=== PATIENT | female | born 1980 | race African-American/Black ===

== ENCOUNTER 2025-02-13 14:33 | Outpatient (AMB) | payer OTHER, SELFPAY ==
--- OUTSIDE RECORDS SUMMARY | 2025-02-10 13:30 | XMS_ITS | Encounter Summary ---
Author Organization [facility] Address [address] [place] [address] Care Team Providers Care Quality Rep Name Role Phone Trevin Quiñonez MD Primary Care Provider [phone] Reason for Visit * Reason Comments Results K f/u Encounter Details Date Type Department Care Team (Late st Contact Info) Description 02/10/2025 1:30 PM EDT [facility] [address] [place] [phone] Trevin Quiñonez MD [address] [place] [id number] Controlled type 2 diabetes mellitus with microalbuminuria, without long-term current use of insulin (CMS/HCC V24, CMS/HCC V28) (Primary Dx); Chronic nausea; Primary hypertension Social History Tobacco Use Types Packs/Day Years Used Date Smoking Tobacco: Former Cigarettes Q uit: 03/15/2017 Smokeless Tobacco: Former Tobacco Cessation:Counseling Given: Not Answered Alcohol Use Standard Drinks/Week Comments Yes 0 (1 standard drink = 0.6 oz pur e alcohol) Housing Instability Answer Date Recorde d Are you worried that in the next 2 months you may not have stable housing? No 01/04/2025 Food Access & Nutrition Answer Date Rec orded Do you have access to a vari ety of food including fruits and vegetables? Yes 01/04/2025 Access to Healthcare Answer Date Record ed Within the last 3 months, ho w many times did you visit the emergency department for your medical care? 0 01/04/2025 Health Literacy Answer Date Recorded How often do you need to hav e someone help you when you read instructions, pamphlets, or other written material from your doctor or pharmacy? Never 01/04/2025 Caregiver: How often do you need to have someone help you when you read instructions, pamphlets, or other written material from your doctor or pharmacy? Not on file 01/04/2025 Financial Risk Answer Date Recorded How hard is it for you to pa y for the very basics like food, housing, medical care, and air conditioning / heating? Patient declined 01/04/2025 Transportation Answer Date Recorded Has the lack of transportati on kept you from meetings, work, or from getting things needed for daily living? No Has the lack of transportati on kept you from medical appointments or from getting medications? No 01/04/2025 Social Isolation Answer Date Recorded How often do you feel lonely or isolated from those around you? Sometimes 01/04/2025 Food Risk Answer Date Recorded Within the past 12 months we worried whether our food would run out before we got money to buy more. Sometimes true 025 Within the past 12 months th e food we bought just didn't last and we didn't have money to get more. Sometimes true 01/04/2025 Dependent Care Answer Date Recorded Do you need help finding or paying for care for your loved ones. For example, child welfare caseworker or elderly care for an older adult? No 01/04/2025 Education Answer Date Recorded Do you think completing more education or training, like finishing a GED, going to college, or learning a trade, would be helpful for you? N/A 01/04/2025 Employment and Income Answer Date Recor ded During the last four weeks, have you been actively looking for work? No 01/04/2025 Living Situation Answer Date Recorded What is your living situation? Unrecognized valu e 01/04/2025 Comments No Sex and Gender Information Value Date Recorded Sex Assigned at Female 02/19/2024 1:26 AM EDT Legal Sex Female 6:07 AM EST Gender Identity Female 02/19/2024 1:26 AM EDT Sexual Orientation Straight 02/19/2024 1: 26 AM EDT documented as of this encounter Last Filed Vital Signs Vital Sign Reading Time Taken Comments Blood Pressure 126/95 02/10/2025 1:38 PM EDT Pulse 91 02/10/2025 1:38 PM EDT Temperature - - Respiratory Rate - - Oxygen Saturation - - Inhaled Oxygen Concentration - - Weight 152 kg (335 lb) 02/10/2025 1:38 PM EDT Height 188 cm (6' 2 ) 02/10/2025 1:38 PM EDT Body Mass Index 43.01 02/10/2025 1:38 PM EDT documented in this encounter Progress Notes * Trevin Quiñonez MD - 02/10/2025 1:30 PM EDT CHIEF COMPLAINT: Chief Complaint Patient presents with Results K f/u IDENTIFIER: Alvina Carl. 45 y.o.. HPI: History of Present Illness The patient presents for evaluation of vomiting. Patient has a longstanding history for diabetes hypertension. She reports experiencing frequent episodes of vomiting, the cause of which remains uncertain to her. She is currently on Ozempic injections and has experienced up to 3 episodes of vomiting in a single day. He usually follows day to 3 after the injection I did explain to her that this could be very well a side effect of the medication. She has been prescribed Zofran 10 mg, but notes that it occasionally induces further vomiting. She does have a longstanding history for hypertension which has been stable and controlled She has not had a mammogram this year or within the last year, but she has scheduled it. She has also scheduled a colonoscopy. PAST MEDICAL HISTORY: Medical History[1] PAST SURGICAL HX: Surgical History[2] SOCIAL HISTORY: FAMILY HISTORY: Family History[3] MEDICATIONS DISCONTINUED/REORDERED: There are no discontinued medications. ACTIVE MEDICATIONS: Medications Ordered Prior to Encounter[4] ALLERGIES: Current Allergies[5] ROS: Constitutional: no weakness fever/ sweats, or weight change Eyes: no blurred vision,pain or discharge ENT: no mouth pain,oral bleeding, congestion or discharge Respiratory: no shortness of breath, cough or wheezing Cardiovascular:no chest pain or palpitations, no orthopnea or PND GI: no nausea, vomiting or diarrhea; no rectal bleeding or dark stools : no dysuria or frequency; no nocturia or hesitancy PHYSICAL EXAM: Vitals: 02/10/25 1338 BP: (!) 126/95 Pulse: 91 BMI PLAN BMI Body mass index is 43.01 kg/m??. General: the patient is in no acute distress.A & Ox 3 Head/Neck: neck supple Lungs: clear to percussion and auscultation. Heart: regular rhythm Abdominal exam; positive bowel sounds; soft, Extremities: no cyanosis, clubbing or edema. LABS: Recent A1c 5.2% IMPRESSION: Encounter Diagnoses Name Primary? Controlled type 2 diabetes mellitus with microalbuminuria, without long-term current use of insulin([facility] V24, [facility] V28) Yes Chronic nausea Primary hypertension PLAN: Assessment & Plan 1. Vomiting: Likely a side effect of Ozempic. Take Zofran as needed for onset of nausea 2 hypertension stable on losartan - Blood pressure readings are within the normal range today. - Achieved weight loss. 3.) diabetes - A1c level is commendable at 5.2%. - Recent cholesterol levels are excellent. - Liver enzymes are within normal limits. - Scheduled mammogram and colonoscopy. - Encouraged to continue current regimen and maintain weight loss efforts. Follow-up - Scheduled mammogram. - Scheduled colonoscopy. No orders of the defined types were placed in this encounter. Additional Orders: None I have obtained verbal consent from Alvina Carl prior to the recording. I have advised Alvina Carl that she may refuse the recording and require the recording to be turned off at any time during this encounter. Trevin Quiñonez MD [1] Past Medical History: Diagnosis Date Alpha thalassemia trait DX:Alpha thalassemia trait COVID-19 06/13/2020 DX:COVID-19; COMMENT: Patient tested positive to Covid 06/11/20 Diabetes ([facility] V24, [facility] V28) DX:Diabetes ([facility]) Diarrhea DX:Diarrhea Ear infection DX:Ear infection; COMMENT: 2-3 X yr Epigastric discomfort DX:Epigastric discomfort Hypertension DX:Hypertension Iron deficiency anemia, unspecified 12/29/2006 DX:Iron deficiency anemia, unspecified Microalbuminuria 01/25/2015 DX:Microalbuminuria Nausea DX:Nausea [2] Past Surgical History: Procedure Laterality Date ADENOIDECTOMY age 6 PROCEDURE: HISTORICAL ADENOIDECTOMY CHOLECYSTECTOMY 2016 PROCEDURE: HISTORICAL CHOLECYSTECTOMY HYSTERECTOMY 2013 PROCEDURE: HISTORICAL HYSTERECTOMY; COMMENT: menorrhagia OTHER SURGICAL HISTORY Left 06/17/2020 PROCEDURE: ---- OTHER ----; COMMENT: Sharp excisional debridement of skin, subcutaneous tissue, andfascia from a left thigh necrotizing soft tissue infection - by Dr. Binh Preciado OTHER SURGICAL HISTORY Left 06/18/2020 PROCEDURE: ---- OTHER ----; COMMENT: Intermediate closure of a left thigh wound status post excisional debridement of a necrotizing soft tissue infection - by Dr. Mary Zelaya WISDOM TOOTH EXTRACTION 02/2012 PROCEDURE: HISTORICAL WISDOM TEETH EXTRACTION [3] Family History Problem Relation Name Age of Onset Stroke Mother 50.00 Diabetes Mother Hypertension Mother Prostate cancer Father 55.00 Hypertension Father ADD / ADHD Son Depression Son [4] Current Outpatient Medications on File Prior to Visit Medication Sig Dispense Refill albuterol HFA (PROAIR HFA ; PROVENTIL HFA ; VENTOLIN HFA) 90 mcg/actuation inhaler Inhale 2 puffs by mouth every 6 (six) hours if needed for wheezing. amLODIPine (NORVASC) 10 mg tablet TAKE 1 TABLET BY MOUTH EVERY DAY 90 tablet 0 atorvastatin (LIPITOR) 20 mg tablet TAKE 1 TABLET BY MOUTH EVERY DAY 90 tablet 0 bisacodyL (DULCOLAX) 5 mg EC tablet Take 2 tablets by mouth right before beginning bowel prep. See instructions provided by the office 2 tablet 0 blood sugar diagnostic (FreeStyle Lite Strips) test strip USE TO CHECK BLOOD SUGAR TWICE A DAY 200 strip 1 buPROPion XL (WELLBUTRIN XL) 300 mg 24 hr tablet Take 450 mg by mouth 1 (one) time each day. Do notcrush, chew, or split. carvediloL (COREG) 6.25 mg tablet TAKE 1 TABLET BY MOUTH TWICE A DAY WITH MEALS 180 tablet 2 cloNIDine (DLNUVQUP-DHA-3) 0.2 mg/[address] 1 Patch onto the skin once a week. divalproex (DEPAKOTE ER) 250 mg 24 hr tablet TAKE 1 TABLET BY MOUTH EVERY DAY FOR 90 DAYS doxepin (SINEquan) 10 mg capsule TAKE 1 CAPSULE BY MOUTH EVERY NIGHT AT BEDTIME FOR INSOMNIA inhalat.spacing dev,large mask spacer Use with inhaler lidocaine (LIDODERM) 5 % patch Place 1 Patch onto the skin every 24 hours. Apply for no more than 12 hours in any 24 hour period. losartan (COZAAR) 50 mg tablet Take 1 Tablet by mouth daily. meclizine (ANTIVERT) 25 mg tablet Take 1 Tablet by mouth 3 times daily as needed (dizziness). metFORMIN (GLUCOPHAGE) 500 mg tablet Take 1 tablet (500 mg total) by mouth 2 (two) times a day withmeals. 180 tablet 1 ondansetron (ZOFRAN) 4 mg tablet Take 1-2 Tablets by mouth every 8 hours as needed for Nausea. polyethylene glycol (Golytely) 236-22.74-6.74 -5.86 gram solution Take 4L by mouth once for one dose. May substitue any PEG. Starting at 2PM the day before your procedure drink 1 8oz glasses at your own pace until you complete half of the gallon. Finish 2nd half of the gallon at 8PM. 4000 mL 0 pregabalin (LYRICA) 100 mg capsule TAKE 1 CAPSULE TWICE A DAY BY ORAL ROUTE DIRECTED FOR 30 DAYS, FOR PAIN. semaglutide (OZEMPIC) 1 mg/dose (4 mg/3 mL) injection pen Inject 1 mg under the skin every 7 (seven) days. 3 mL 5 sertraline (ZOLOFT) 100 mg tablet Take 1 Tablet by mouth daily. (Patient taking differently: Take 0.5 tablets (50 mg total) by mouth 1 (one) time each day.) spironolactone (ALDACTONE) 25 mg tablet TAKE 1 TABLET BY MOUTH EVERY DAY 90 tablet 0 SUMAtriptan (IMITREX) 50 mg tablet traMADoL (ULTRAM) 50 mg tablet TAKE 1 TABLET TWICE A DAY BY ORAL ROUTE NEEDED FOR 7 DAYS, FOR PAIN. traZODone (DESYREL) 100 mg tablet Take 2.5 Tablets by mouth at bedtime as needed. valACYclovir (VALTREX) 1 gram tablet TAKE 1 TABLET (1,000 MG TOTAL) BY MOUTH DAILY 90 tablet 1 No current facility-administered medications on file prior to visit. [5] Allergies Allergen Reactions Fruit Extracts Nausea And Vomiting and Swelling Fruit and Fruit Extracts Other Reaction(s): Numbness, tingling or swelling of the lips, tongue or mouth All fresh fruit All fresh fruit causes mouth tingling, tongue swelling Fruit Flavor Swelling All fresh fruit causes mouth tingling, tongue swelling Other Seasonal Allergies Runny nose , watery eye's , sneezing documented in this encounter Plan of Treatment Upcoming Encounters Date Type Department Care Team (Late st Contact Info) Description 02/15/2025 1:30 PM EDT [facility]ointment [facility] [address] [place] [address] 03/02/2025 4:20 PM EST Office Visit Endocrinology - [place] [address] [place] [address] Elvi Willett PA [address] [place] [address] documented as of this encounter Visit Diagnoses Diagnosis Controlled type 2 diabetes mellitus with microalbuminuria, without long-term current use of insulin ([facility] V24, [facility] V28)- Primary Chronic nausea Nausea alone Primary hypertension Unspecified essential hypertension Encounter for screening mammogram for breast cancer documented in this encounter Additional Health Concerns Assessment Noted Time PHQ-9 Depression Total Score: 8 01/10/20 25 1:35 PM EDT documented as of this encounter Care Teams Quality Rep Relationship Specialty Start Date End Date Trevin Quiñonez MD [address] [place] [id number] PCP - General Internal Medicine 02/25/24 documented as of this encounter
--- NOTE | 2025-02-13 14:58 | A.OFFVIS_ITS ---
Intake Visit Reasons: Last visit 07/13/24 per [facility]CW Allergies No Known Allergies Allergy (Verified 02/08/25 11:06) HPI Comments Details: 43 y/o woman with obesity, HTN, DM, depression, anxiety, s/p spinal cord stimulator placement for leg pain in 2022, and headaches. She has run out of depakote and she was having headaches again. Sumatriptan was helping too. [facility] Medical History (Updated 02/13/25 @ 15:01 by Wayne Titus MD) Migraine Agoraphobia Anxiety Depression Obesity Diabetes mellitus HTN (hypertension) Review of Systems Narrative Constitutional:?No fever, chills, fatigue, weight loss, or night sweats. HEENT:?c/o headaches but not as bad as before Neurological:?No dizziness, syncope, seizures, numbness, tingling, weakness, tremors, memory loss. Psychiatric:?Lately mood is not great Endocrine:?No heat/cold intolerance, polydipsia, polyuria, or hair/skin changes. Hematologic/Lymphatic:?No easy bruising, bleeding, or lymphadenopathy. Integumentary (Skin):?No rash, lesions, itching, or color changes. ? Physical Exam Neuro Other: Mental Status: Alert and oriented to person, place, and time. Normal attention. Normal spontaneous speech, fluency, and comprehension. No obvious issues with mood and memory. Affect is appropriate. Cranial Nerves: CN II: Visual garcia full to confrontation, visual acuity intact. CN III, IV, : Pupils equal, round, reactive to light and accommodation. Extraocular movements are normal. CN V: Facial sensation is normal. CN VII: Facial movements symmetrical. CN VIII: Hearing intact to bedside conversation is normal. CN IX, X: Palate elevates symmetrically. CN XI: Shoulder shrug and head turn symmetrical. CN XII: Tongue midline without atrophy or fasciculations. Extrapyramidal: Full facial expressions and blinking. No rigidity. Movements are appropriate with no tremor or abnormality. Speech: Normal; no dysarthria or tremor. Assessment & Plan Assessment & Plan (1) Migraine: Comment: Meds tried: Topiramate, propranolol, Depakote. Code(s): G43.909 - Migraine, unspecified, not intractable, without status migrainosus Category: Medical Qualifiers: Migraine type: without aura Status migrainosus presence: without status migrainosus Intractability: not intractable Qualified Code(s): G43.009 - Migraine without aura, not intractable, without status migrainosus Plan Impression: Migraine without aura Recommendations: 1. D valproic acid extended release 250 mg 1 at bedtime 2. Sumatriptan 50 mg 1 a day as needed Medications: New sumatriptan succinate 50 mg orally qd prn for headache PRN; do not exceed 4 d oses per 24 hrs 10 tabs 5RF migraine headache Refilled divalproex 250 mg PO DAILY 90 tabs 1RF Coding Level of Care Code Est Pt Level 4 (27463) Diagnoses Migraine without aura and without status migrainosus, not intractable G43.009 Migraine type: without aura Status migrainosus presence: without status migrainosus Intractability: not intractable
--- OUTSIDE RECORDS SUMMARY | 2025-02-13 18:07 | XMS_ITS | Encounter Summary ---
Author Organization [facility] Address [address] [place] [address] Care Team Providers Care Health Aid Name Role Phone Trevin Quiñonez MD Primary Care Provider Encounter Details Date Type Department Care Team (Late st Contact Info) Description 01/25/2025 Results Follow-Up Endocrinology - [place] [address] [place] [address] Elvi Willett PA [address] [place] [address] Social History Tobacco Use Types Packs/Day Years Used Date Smoking Tobacco: Former Cigarettes Q uit: 03/15/2017 Smokeless Tobacco: Former Alcohol Use Standard Drinks/Week Comments Yes 0 [...] AM EDT documented as of this encounter Plan of Treatment Upcoming Encounters Date Type Department Care Team (Late st Contact Info) Description 02/15/2025 1:30 PM EDT Appointment [facility] at [address] [phone] 03/02/2025 4:20 PM EST Office Visit Endocrinology [address] [phone] Elvi Willett PA [address] [place] [address] documented as of this encounter Visit Diagnoses Not on filedocumented in this encounter Additional Health Concerns Assessment Noted Time PHQ-9 Depression Total Score: 8 01/10/20 25 1:35 PM EDT documented as of this encounter Care Teams Health Aid Relationship Specialty Start Date End Date Trevin Quiñonez MD [address] [place] [id number] PCP - General Internal Medicine 02/25/24 documented as of this encounter
--- OUTSIDE RECORDS SUMMARY | 2025-02-13 18:07 | XMS_ITS | Clinical Summary ---
Author Organization [facility] Address [address] [place] [address] Care Team Providers Care Sales Broker Name Role Phone Gali Canales MD Primary Care Provider [phone] Allergies Active Allergy Reactions Criticality Noted Date Comments Fruit Swelling 03/14/2014 All fresh fruit causes mouth tingling, tongue swelling Medications Medication Sig Dispensed Refills Start Date End Date Status adalimumab (Humira Pen) 40 MG/0.8ML injection Inject 40 mg under the skin once a week. 0 06/09/2019 Active albuterol (ProAir HFA) 108 (90 Base) MCG/ACT inhaler Inhale 2 puffs into the lungs 4 (four) times a day as needed. 0 08/05/2018 Active amLODIPine (NORVASC) tablet 10 mg Take 1 tablet by mouth daily. 0 05/11/2019 Active cloNIDine (CATAPRES) 0.2 MG tablet Take 1 tablet by mouth every night at bedtime. 0 09/16/2019 Active colestipol (COLESTID) 1 g tablet Take 2 tablets by mouth daily. 0 01/24/2019 Active indapamide (LOZOL) 2.5 MG tablet Take 2.5 mg by mouth daily. 0 04/01/2019 Active liraglutide (Victoza) 18 MG/3ML injection Inject 1.8 mg under the skin daily. 0 03/08/2019 Active loratadine (Claritin) 10 MG tablet Take 10 mg by mouth daily. 0 12/11/2016 Active losartan (COZAAR) tablet 50 mg Take 50 mg by mouth daily. 0 04/01/2019 Active meclizine (ANTIVERT) 25 MG tablet Take 25 mg by mouth 3 (three) times a day as needed. 0 09/20/2019 Active metFORMIN (GLUCOPHAGE) tablet 1000 mg Take 1,000 mg by mouth 2 (two) times a day. 0 06/17/2019 Active ondansetron (ZOFRAN) 4 MG tablet Take 4-8 mg by mouth every 8 (eight) hours as needed. 0 07/25/2019 Active sertraline (ZOLOFT) 50 MG tablet Take 50 mg by mouth daily. 0 07/23/2017 Active valACYclovir (VALTREX) 1000 MG tablet Take 1 tablet by mouth daily. 0 08/01/2019 Active zolpidem (Ambien) 10 MG tablet Take 1 tablet by mouth every night at bedtime as needed. 0 Active traZODone (DESYREL) 50 MG tablet Take 50 mg by mouth every night at bedtime. 0 Active buPROPion (WELLBUTRIN XL) 300 MG 24 hr tablet Take 300 mg by mouth daily. 0 Active buPROPion (WELLBUTRIN XL) 150 MG 24 hr tablet Take 150 mg by mouth daily. 0 Active Social History Tobacco Use Types Packs/Day Years Used Date Smoking Tobacco: Former Cigarettes Q uit: 12/03/2016 Smokeless Tobacco: Never Alcohol Use Standard Drinks/Week Comments Yes 0 (1 standard drink = 0.6 oz pur e alcohol) social Sex and Gender Information Value Date Recorded Sex Assigned at Not on file Gender Identity Not on file Sexual Orientation Not on file Job Start Date Occupation Industry Not on file Not on file Not on file Last Filed Vital Signs Vital Sign Reading Time Taken Comments Blood Pressure - - Pulse 100 12/03/2020 10:17 AM EDT Temperature 36.8 C (98.3 F) 12/03/2020 10:17 AM EDT Respiratory Rate - - Oxygen Saturation 95% 12/03/2020 10:17 AM EDT Inhaled Oxygen Concentration - - Weight 177.8 kg (392 lb) 12/03/2020 10:17 AM EDT Height 188 cm (6' 2 ) 12/03/2020 10:17 AM EDT Body Mass Index 50.33 12/03/2020 10:17 AM EDT Plan of Treatment Health Maintenance Due Date Last Done Comments Hepatitis B Vaccines (1 of 3 - 3-dose series) 1978 Hepatitis C Screening 1978 Depression Screening 1990 Preventative Health Evaluation 01/18/1996 Cervical Cancer Screening (Pap Smear) 1999 Colon Cancer Screening (Colonoscopy) 2023 DTap / Tdap / Td (2 - Td or Tdap) 11/08/2023 11/07/2013 COVID-19 Vaccine ( season) 2024 08/05/2020, 07/14/2020 Influenza Vaccine (#1) 2024 9, 12/28/2014, 01/18/2014, Additional history exists Pneumococcal Vaccine Aged Out 11/07/2013 No long er eligible based on patient's age to complete this topic RSV Ped < 20 months Aged Out No longe r eligible based on patient's age to complete this topic Care Teams Sales Broker Relationship Specialty Start Date End Date Gali Canales MD PCP - General Internal Medicine 10/20/19
--- OUTSIDE RECORDS SUMMARY | 2025-02-13 18:07 | XMS_ITS | Encounter Summary ---
Author Organization [facility] Address [address] [place] [address] Care Team Providers Care Engraver Flatware Name Role Phone Trevin Quiñonez Primary Care Provider [phone] Encounter Details Date Type Department Care Team (Late st Contact Info) Description 10/16/2024 myChart Message [facility] Operating Room [address] [place] [phone] Mychart, Generic Provider [address] [place], [place] [id number] Questionnaire Submission Social History Tobacco Use Types Packs/Day Years Used Date Smoking Tobacco: Never Assessed Comments Unknown Sex and Gender Information Value Date Recorded Sex Assigned at Female 03/24/2024 5:40 PM EST Legal Sex Female 11:51 AM EST Gender Identity Female 03/24/2024 5:40 PM EST Sexual Orientation Straight 03/24/2024 5: 40 PM EST documented as of this encounter Plan of Treatment Not on file documented as of this encounter Visit Diagnoses Not on filedocumented in this encounter Care Teams Engraver Flatware Relationship Specialty Start Date End Date Trevin Quiñonez [address] [place] [phone] PCP - General Internal Medicine 03/11/24 documented as of this encounter
--- OUTSIDE RECORDS SUMMARY | 2025-02-13 18:07 | XMS_ITS | Clinical Summary ---
Author Organization [facility] Address [address] [place] [address] Phone Care Team Providers Care Hot Wort Settler Name Role Phone Martin Bowles MD Primary Care Provider [phone] Allergies Active Allergy Reactions Criticality Noted Date Comments Fruit Extracts Nausea And Vomiting,Swelling 03/14/2014 Fruit and Fruit Extracts Other Reaction(s): Numbness, tingling or swelling of the lips, tongue or mouth All fresh fruit All fresh fruit causes mouth tingling, tongue swelling Fruit Flavor Swelling 03/14/2014 All fresh fruit causes mouth tingling, tongue swelling Other 01/11/2016 Seasonal Allergies Runny nose , watery eye's , sneezing Medications cloNIDine (HLVHBOMF-IKO-1 ) 0.2 mg/[address] 1 Patch onto the skin once a week. 07/13/19 23 Active divalproex (DEPAKOTE ER) 250 mg 24 hr tablet TAKE 1 TABLET BY MOUTH EVERY DAY FOR 90 DAYS 01/12/20 24 Active lidocaine (LIDODERM) 5 % patch Place 1 Patch onto the skin every 24 hours. Apply for no more than 12 hours in any 24 hour period. 08/13/19 24 Active losartan (COZAAR) 50 mg tablet Take 1 Tablet by mouth daily. 09/21/19 24 Active meclizine (ANTIVERT) 25 mg tablet Take 1 Tablet by mouth 3 times daily as needed (dizziness). 02/03/20 24 Active ondansetron (ZOFRAN) 4 mg tablet Take 1-2 Tablets by mouth every 8 hours as needed for Nausea. 02/03/20 Active pregabalin (LYRICA) 100 mg capsule TAKE 1 CAPSULE TWICE A DAY BY ORAL ROUTE DIRECTED FOR 30 DAYS, FOR PAIN. 01/21/20 Active sertraline (ZOLOFT) 100 mg tablet Take 1 Tablet by mouth daily. 03/18/20 Active inhalat.spacing dev,large mask spacer Use with inhaler 06/20/19 Active SUMAtriptan (IMITREX) 50 mg tablet 02/08/20 Active traMADoL (ULTRAM) 50 mg tablet TAKE 1 TABLET TWICE A DAY BY ORAL ROUTE NEEDED FOR 7 DAYS, FOR PAIN. 12/24/19 Active traZODone (DESYREL) 100 mg tablet Take 2.5 Tablets by mouth at bedtime as needed. 03/18/20 Active buPROPion XL (WELLBUTRIN XL) 300 mg 24 hr tablet Take 450 mg by mouth 1 (one) time each day. Do not crush, chew, or split. Active albuterol HFA (PROAIR HFA ; PROVENTIL HFA ; VENTOLIN HFA) 90 mcg/actuation inhaler Inhale 2 puffs by mouth every 6 (six) hours if needed for wheezing. Active carvediloL (COREG) 6.25 mg tabletIndicatio ns:Essential (primary) hypertension TAKE 1 TABLET BY MOUTH TWICE A DAY WITH MEALS 180 tablet 2 11/17/19 25 Active valACYclovir (VALTREX) 1 gram tabletIndicatio ns:Herpesviral vulvovaginitis, Depression, unspecified TAKE 1 TABLET (1,000 MG TOTAL) BY MOUTH DAILY 90 tablet 1 11/17/19 25 Active metFORMIN (GLUCOPHAGE) 500 mg tablet Take 1 tablet (500 mg total) by mouth 2 (two) times a day with meals. 180 tablet 1 11/17/19 25 Active semaglutide (OZEMPIC) 1 mg/dose (4 mg/3 mL) injection penIndications: Controlled type 2 diabetes mellitus with microalbuminuri a, without long-term current use of insulin ([facility] V24, CMS/[facility] V28) Inject 1 mg under the skin every 7 (seven) days. 3 mL 5 12/28/19 25 Active spironolactone (ALDACTONE) 25 mg tablet TAKE 1 TABLET BY MOUTH EVERY DAY 90 tablet 01/03/20 25 Active amLODIPine (NORVASC) 10 mg tablet TAKE 1 TABLET BY MOUTH EVERY DAY 90 tablet 01/03/20 25 Active atorvastatin (LIPITOR) 20 mg tablet TAKE 1 TABLET BY MOUTH EVERY DAY 90 tablet 01/03/20 25 Active doxepin (SINEquan) 10 mg capsule TAKE 1 CAPSULE BY MOUTH EVERY NIGHT AT BEDTIME FOR INSOMNIA 01/04/20 25 Active bisacodyL (DULCOLAX) 5 mg EC tablet Take 2 tablets by mouth right before beginning bowel prep. See instructions provided by the office 2 tablet 01/26/20 Active polyethylene glycol (Golytely) 236-22.74-6.74 -5.86 gram solution Take 4L by mouth once for one dose. May substitue any PEG. Starting at 2PM the day before your procedure drink 1 8oz glasses at your own pace until you complete half of the gallon. Finish 2nd half of the gallon at 8PM. 4000 mL 01/26/20 Active blood sugar diagnostic (FreeStyle Lite Strips) test strip USE TO CHECK BLOOD SUGAR TWICE A DAY 200 strip 1 02/14/20 25 Active blood sugar diagnostic (FreeStyle Lite Strips) test strip USE TO CHECK BLOOD SUGAR TWICE A DAY 200 strip 1 08/16/19 25 2024 Discontinued metroNIDAZOLE (FLAGYL) 500 mg tablet Take 1 tablet (500 mg total) by mouth 2 (two) times a day for 7 days. Do not use mouth wash or consume alcohol until 48 hours after last dose 14 tablet 01/10/20 25 2024 Active Problems Problem Noted Date Diagnosed Date Alpha thalassemia trait 02/19/2024 Diarrhea 02/19/2024 Epigastric discomfort 02/19/2024 Nausea 02/19/2024 Morbid obesity with BMI of 4 5.0-49.9, adult (CMS/[facility] V24, CMS/HCC V28) 02/19/2024 Chronic bilateral low back pain with bilateral s ciatica 02/16/2024 Overview (02/19/2024): Last Assessment & Plan: This is a 44-year-old woman who describes a 20+ year history of low back pain with radiation to the right greater than left leg. She has had physical therapy and epidural steroid injections as well as chiropractic treatment and acupuncture over the years. She sees Dr. Headley who placed a spinal stimulator and has discussed fusion surgery but told her she needs to lose weight before he would consider it. I reviewed her films with Dr. Carrillo including an MRI of the lumbar spine from [facility] dated April 27, 2023. This did show L4-5 and L5-S1 degenerative disc disease worse than at L3-4. There was bilateral lateral recess and foraminal stenosis at L4-5 and L5- S1. The most impressive finding was the fluid in the facet joints which was worst at L4-5 but also present at L5-S1. We will arrange for L4-5 facet joint injections. I told the patient that if she lost [address] Carrillo would consider an L4-5 and L5- S1 fusion. I gave her my card and told her I would be happy to see her in the future. Trichomoniasis 02/25/2022 Overview (02/19/2024): Pt has been evaluated and treated for trich: 05/22/20 07/17/20 08/21/20 11/02/21 12/17/21 01/14/22 02/03/22 - DOLLY negative on 03/26/22 Migraine without status migrainosus, not intract able 12/16/2021 Chronic nonintractable headache 10/14/2021 Intercostal pain 07/18/2021 Palpitations 07/17/2021 Abnormal ECG 05/09/2021 Tachycardia 05/08/2021 Overview (02/19/2024): 04/10/21 - Holter @ [facility] Last Assessment & Plan: Continue carvedilol 6.25 mg twice a day as per cardiology. Follow-up with cardiology when scheduled. We will continue to monitor along with cardiology. 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 Prestudy ESS 4; 3/4 RLS symptoms. - Obstructive Sleep Apnea - severe overall and severe in REM; mostly hypopneas; with sleep related hypoventilation by 2018 polysomnogram. 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 Not currently on other diabetes medications at this time. Labs ordered to be done in the next few days. Discussed in detail diet to help control his blood sugars. Encouraged a low-fat, lean protein, high-fiber, low carbohydrate diet. Discussed avoiding sweets and junk food. Decrease the amount of bread, rice, pasta and potatoes. Regular exercise also encouraged to help with weight loss and provide cardiovascular benefit. Recheck in 3 months. Primary hypertension 06/16/2008 Overview (02/19/2024): Last Assessment & Plan: Continue losartan 50 mg daily, clonidine 0.2 mg twice a day, indapamide 2.5 mg daily and Coreg 6.25 mg twice a day. Labs ordered to be done in the next few days. Will continue to monitor blood pressures in office at next visit. Discussed dietary strategies to help control his blood pressure. Encouraged low-fat, lean protein, high-fiber, low-cholesterol, low carbohydrate diet. Regular exercise and weight loss also encouraged to help with blood pressure control. Recheck in office in 3 months. Depression 05/18/2007 Encounters Date Type Department Care Team Description 02/10/2025 1:30 PM EDT Office Visit Internal Medicine - [address] [phone] Martin Bowles MD Controlled type 2 diabetes mellitus with microalbuminuria, without long-term current use of insulin (CMS/HCC V24, CMS/HCC V28) (Primary Dx); Chronic nausea; Primary hypertension 01/25/2025 Results Follow-Up Endocrinology - [address] [phone] Elvi Willett PA 01/23/2025 [facility] [phone] Sayra Badillo MA 01/20/2025 11:15 AM EDT Office Visit Internal Medicine - [address] [phone] Alicia Smith, Right eye symptoms (Primary Dx); Primary hypertension 01/20/2025 Results Follow-Up Internal Medicine - [address] [phone] Aga Martinez MA 01/09/2025 1:45 PM EDT Office Visit Obstetrics and Gynecology - [address] [phone] Brandy Callejas CNM Screen for STD (sexually transmitted disease) (Primary Dx); BV (bacterial vaginosis) 01/04/2025 4:34 PM EDT - 01/04/2025 11:59 PM EDT Hospital Encounter Radiology Department - [address] [phone] Multiple thyroid nodules Discharge Disposition: Home or Self Care 12/27/2024 3:00 PM EDT Office Visit Endocrinology [address] [phone] Alexandra Webber PA Controlled type 2 diabetes mellitus with microalbuminuria, without long-term current use of insulin ([facility] V24, [facility] V28) (Primary Dx); Microalbuminuria; Multiple thyroid nodules; Elevated blood pressure reading 11/16/2024 2:45 PM EDT Telemedicine Internal Medicine - [address] [phone] Martin Bowles MD Controlled type 2 diabetes mellitus with microalbuminuria, without long-term current use of insulin ([facility] V24, [facility] V28) (Primary Dx); Primary hypertension; Mild intermittent asthma, unspecified whether complicated from Last 3 Months Immunizations Immunization Administration Dates Next Due Influenza Quadravalent, MDCK , 0.5ml, preservative free (Flucelvax) 6mo and older 01/19/2023,01/02/2022,01/10/2021,12/31 Influenza trivalent, 0.5mL, preservative free (Fluarix; FluLaval; Fluzone) ages 6mo and older (Afluria) 3 years and older 12/28/2014,01/18/2014,01/21/2011,03/01,01/26/2009,03/23/2008 [employer] SARS-CoV-2 COVID-19, mRNA, LNP-S, preservative free 08/05/2020,07/14/2020 Pneumococcal polysaccharide 23 valent (Pneumovax 23) 2yo and older 11/07/2013 Tdap Tetanus diptheria acell ular pertussis (Boostrix; Adacel) 7yo and older 02/03/2024,11/07/2013 Surgical History Surgery Date Site/Laterality Comments WISDOM TOOTH EXTRACTION 02/2012 PROCEDURE: HISTORICAL WISDOM TEETH EXTRACTION ADENOIDECTOMY age 6 PROCEDURE: HISTORICAL ADENOIDECTOMY HYSTERECTOMY 2013 PROCEDURE: HISTORICAL HYSTERECTOMY; COMMENT: menorrhagia CHOLECYSTECTOMY 2016 PROCEDURE: HISTORICAL CHOLECYSTECTOMY OTHER SURGICAL HISTORY 06/17/2020 Left PROCEDURE: ---- OTHER ----; COMMENT: Sharp excisional debridement of skin, subcutaneous tissue, and fascia from a left thigh necrotizing soft tissue infection - by Dr. Binh Preciado OTHER SURGICAL HISTORY 06/18/2020 Left PROCEDURE: ---- OTHER ----; COMMENT: Intermediate closure of a left thigh wound status post excisional debridement of a necrotizing soft tissue infection - by Dr. Mary Zelaya Medical History Medical History Date Comments Iron deficiency anemia, unspecified 12/29/2006 DX:Iron deficiency anemia, unspecified Alpha thalassemia trait DX:Alpha thalassemia trait Ear infection DX:Ear infection ; COMMENT: 2-3 X yr Hypertension DX:Hypertension Microalbuminuria 01/25/2015 DX:Microalbumin uria Diarrhea DX:Diarrhea Nausea DX:Nausea Diabetes (CMS/HCC V24, CMS/HCC V28) DX:Diabetes ([facility]) Epigastric discomfort DX:Epigast octaviano discomfort Covid-19 06/13/2020 DX:COVID-19; COM MENT: Patient tested positive to Covid 06/11/20 Family History Medical History Relation Name Comments Hypertension Father Prostate cancer Father Diabetes Mother Hypertension Mother Stroke Mother ADD / ADHD Son 1 Depression Son 2 Relation Name Status Comments Father Alive high cholestero l Maternal Grandfather Mother Alive HTN Paternal Grandfather Paternal Grandmother Sister Alive healthy Son 1 Alive healthy Son 2 Alive healthy Social History Tobacco Use Types Packs/Day Years [...] for your loved ones. For example, child neurologist or elderly care for an older adult? [...] Orientation Straight 02/19/2024 1: 26 AM EDT Obstetrics History * This document contains information received from the source organization and may not represent a complete record from that organization. Para Term AB IAB SAB Ectopic Multiple Livin g Live Births 4 2 2 2 2 Date Outcome GA Total Labor Labor/2nd/3rd Weight Sex Type Anes PTL Evelyn A1 A5 Name Clin 2000 Term 4763 g (168 oz) M Vag-S pont Living 2006 Term 4309 g (152 oz) M Vag-S pont Living 2 Last Filed Vital Signs Vital Sign Reading Time Taken Comments Blood Pressure 126/95 02/10/2025 1:38 PM EDT Pulse 91 02/10/2025 1:38 PM EDT Temperature 35.9 C (96.6 F) 12/27/2024 3:11 PM EDT Respiratory Rate 14 01/09/2025 1:41 PM EDT Oxygen Saturation 96% 03/22/2024 1:30 PM EST Inhaled Oxygen Concentration - - Weight 152 kg (335 lb) 02/10/2025 1:38 PM EDT Height 188 cm (6' 2 ) 02/10/2025 1:38 PM EDT Body Mass Index 43.01 02/10/2025 1:38 PM EDT Plan of Treatment Upcoming Encounters Date Type Department Care Team (Late st Contact Info) Description 02/15/2025 1:30 PM EDT [facility]ointment [facility] [address] [phone] 03/02/2025 4:20 PM EST Office Visit Endocrinology - [place] [address] [place] [phone] Elvi Willett PA [address] [place] [address] Health Maintenance Due Date Last Done Comments Colorectal Cancer Screening: Colonoscopy 1978 Hepatitis B Vaccines (1 of 3 - 19+ 3-dose series) 1997 Pneumococcal Vaccine: Pediatrics (0 to 5 Years) and At-Risk Patients (6 to 49 Years) (2 of 2 - PCV) 11/07/2014 11/07/2013 Medicare Annual Wellness Visit 03/29/2022 Cervical Cancer Screening: Pap Smear 02/01/2024 01/31/2021 Diabetes: Annual Foot Exam 03/31/2024 03/31/2023 COVID-19 Vaccine ( season) 2024 03/18/2021, 08/05/2020, 07/14/2020 Influenza Vaccine (#1) 2024 , 01/02/2022, 01/10/2021, Additional history exists Diabetes: Blood Sugar Control Test (HGBA1C) 07/21/2025 01/20/2025, 10/24/2024, 01/29/2024, Additional history exists Breast Cancer Screening 07/22/2025 07/23/19 24, 05/13/2022, 11/23/2020, Additional history exists Diabetes: Annual Retina Eye Exam 11/15/2025 11/15/2024, 11/12/2023 Social Influencers of Health Screening 01/04/2026 01/04/2025 Diabetes: Annual Urine Albumin-Creatinine Ratio (uACR) 01/20/2026 01/20/2025, 05/14/2023 Diabetes: Annual GFR (Glomerular Filtration Rate) 01/20/2026 01/20/2025, 10/28/2024, 10/24/2024, Additional history exists Hypertension/CHF/CAD Annual BMP Blood Test 01/20/2026 01/20/2025, 10/28/2024, 10/24/2024, Additional history exists Cholesterol Screening (Lipid Panel) 01/20/2030 01/20/2025, 04/11/2024, 07/09/2023 DTaP,Tdap,and Td Vaccines (3 - Td or Tdap) 02/02/2034 02/03/2024, 11/07/2013 RSV Immunization Adult Patients (1 - 1-dose 75+ series) 2053 HIV Screening Completed 01/29/2024, 01/29/2024 Hepatitis C Screening Completed 01/29/2024 Depression Screening Completed 01/09/2025 HIB Vaccines Aged Out No longer eligi ble based on patient's age to complete this topic HPV Vaccines Aged Out No longer eligi ble based on patient's age to complete this topic Hepatitis A Vaccines Aged Out No long er eligible based on patient's age to complete this topic IPV Vaccines Aged Out No longer eligi ble based on patient's age to complete this topic MMR Vaccines Aged Out No longer eligi ble based on patient's age to complete this topic Meningococcal ACWY Vaccine Aged Out N o longer eligible based on patient's age to complete this topic Meningococcal B Vaccine Aged Out No l onger eligible based on patient's age to complete this topic RSV Immunization Patients Under 20 months Aged Out No longer eligible based on patient's age to complete this topic Varicella Vaccines Aged Out No longer eligible based on patient's age to complete this topic Procedures Procedure Name Priority Date/Time Associated Diagnosis Comments HEMOGLOBIN A1C Routine 01/20/2025 11:52 AM EDT Controlled type 2 diabetes mellitus with microalbuminuria, without long-term current use of insulin ([facility] V24, [facility] V28) MICROALBUMIN CREATININE URINE RATIO Routine 01/20/2025 11:52 AM EDT Controlled type 2 diabetes mellitus with microalbuminuria, without long-term current use of insulin ([facility] V24, CMS/[facility] V28) ALANINE AMINOTRANSFERASE Routine 11:52 AM EDT Controlled type 2 diabetes mellitus with microalbuminuria, without long-term current use of insulin ([facility] V24, CMS/[facility] V28) ASPARTATE AMINOTRANSFERASE Routine 01/20/2025 11:52 AM EDT Controlled type 2 diabetes mellitus with microalbuminuria, without long-term current use of insulin (CMS/[facility] V24, CMS/[facility] V28) LIPID PANEL WITH REFLEX TO DIRECT LDL Routine 01/20/2025 11:52 AM EDT Controlled type 2 diabetes mellitus with microalbuminuria, without long-term current use of insulin ([facility] V24, CMS/[facility] V28) BASIC METABOLIC PANEL Routine 01/20/2025 11:52 AM EDT Primary hypertension TRICHOMONAS VAGINALIS ANTIGEN Routine 01/09/2025 2:18 PM EDT Screen for STD (sexually transmitted disease) CHLAMYDIA TRACHOMATIS AND NEISSERIA GONORRHOEAE PCR Routine 01/09/2025 2:18 PM EDT Screen for STD (sexually transmitted disease) POC WET MOUNT Routine 01/09/2025 1:55 PM EDT BV (bacterial vaginosis) US HEAD NECK SOFT TISSUE Routine 025 5:02 PM EDT Multiple thyroid nodules POC GLUCOSE Routine 12/27/2024 3:15 PM EDT Controlled type 2 diabetes mellitus with microalbuminuria, without long-term current use of insulin (CMS/HCC V24, CMS/HCC V28) EXTERNAL DIABETIC RETINA EYE EXAM 11/15/2024 HEPATITIS C SCREENING Routine 01/29/2024 HIV SCREENING Routine 01/29/2024 [facility] SCREENING DIGITAL Routine 07/23/2023 8:57 AM EDT Encounter for screening mammogram for malignant neoplasm of breast DIABETES FOOT EXAM Routine 03/31/2023 PAP SMEAR Routine 01/31/2021 from Last 3 Months or Most Recently Relevant to Health Maintenance Results * Lipid panel with reflex to direct LDL (01/20/2025 11:52 AM EDT) Cholesterol 195 0 - 200 mg/dL LAB CHEMISTRY METHOD 01/20/2025 5:13 PM EDT [facility] Triglycerides 54 0 - 150 mg/dL LAB CHEMISTRY METHOD 01/20/2025 5:13 PM EDT [facility] HDL 86 >=40 mg/dL LAB CHEMISTRY METHOD 01/20/2025 5:13 PM EDT [facility] LDL Calculated 98 0 - 100 mg/dL LAB CHEMISTRY METHOD 01/20/2025 5:13 PM EDT [facility] Comment:Estimated LDL Calcul ated using equation: Total cholesterol - HDL cholesterol - (Triglycerides/5) VLDL Cholesterol Filemon 10.8 mg/dL LAB CHEMISTRY METHOD 01/20/2025 5:13 PM EDT [facility] Non HDL Chol. (LDL+VLDL) 109 <145 mg/dL LAB CHEMISTRY METHOD 01/20/2025 5:13 PM EDT [facility] Chol/HDL Ratio 2.3 0.0 - 4.4 LAB CHEMISTRY METHOD 01/20/2025 5:13 PM EDT [facility] Blood Venous blood specimen / Unknown Venipuncture / Unknown 01/20/2025 11:52 AM EDT 01/20/2025 11:52 AM EDT Martin Bowles MD LAB BLOOD ORDERABLES Final Res ult [facility] [address] [place] [address], [place] [phone] * Microalbumin creatinine urine ratio (01/20/2025 11:52 AM EDT) Creatinine, Urine 216.0 mg/dL LAB CHEMISTRY METHOD 01/20/2025 5:31 PM EDT [facility] Microalb, Ur 17.4 0.0 - 29.0 mg/L LAB CHEMISTRY METHOD 01/20/2025 5:31 PM EDT [facility] Microalb/Creat Ratio 8 <30 mg/g creat LAB CHEMISTRY METHOD 01/20/2025 5:31 PM EDT [facility] Urine Urine specimen obtained by clean catch procedure / Unknown Non-blood Collection / Unknown 01/20/2025 11:52 AM EDT 01/20/2025 11:52 AM EDT Elvi KIRK LAB URINE ORDERABLES Final Resul t [facility] [address] [place] [address], [place] [phone] * Alanine aminotransferase (01/20/2025 11:52 AM EDT) ALT (SGPT) 16 10 - 60 unit/L LAB CHEMISTRY METHOD 01/20/2025 5:10 PM EDT [facility] Blood Venous blood specimen / Unknown Venipuncture / Unknown 01/20/2025 11:52 AM EDT 01/20/2025 11:52 AM EDT Martin Bowles MD LAB BLOOD ORDERABLES Final Res ult [facility] [address] [place] [address], [place] [phone] * Aspartate aminotransferase (01/20/2025 11:52 AM EDT) AST (SGOT) 11 10 - 42 unit/L LAB CHEMISTRY METHOD 01/20/2025 5:10 PM EDT [facility] Blood Venous blood specimen / Unknown Venipuncture / Unknown 01/20/2025 11:52 AM EDT 01/20/2025 11:52 AM EDT Martin Bowles MD LAB BLOOD ORDERABLES Final Res ult Performing Organization Address City/[facility]/ZIP Co de Phone Number [facility] [address] [place] [address], [place] [phone] * Hemoglobin A1c (01/20/2025 11:52 AM EDT) Pathologist [facility] Hemoglobin A1C 5.2 <6.5 % LAB CHEMISTRY METHOD 01/20/2025 8:29 PM EDT [facility] Mean Bld Glu Estim. 103 mg/dL LAB CHEMISTRY METHOD 01/20/2025 8:29 PM EDT [facility] Blood Venous blood specimen / Unknown Venipuncture / Unknown 01/20/2025 11:52 AM EDT 01/20/2025 11:52 AM EDT us Elvi KIRK LAB BLOOD ORDERABLES Final Resul t [facility] [address] [place] [address], [place] [phone] * (ABNORMAL) Basic metabolic panel (01/20/2025 11:52 AM EDT) Sodium 143 133 - 145 mmol/L LAB CHEMISTRY METHOD 01/20/2025 5:10 PM [facility] Potassium 3.3(L) 3.5 - 5.5 mmol/L LAB CHEMISTRY METHOD 01/20/2025 5:10 PM [facility] Chloride 108 96 - 110 mmol/L LAB CHEMISTRY METHOD 01/20/2025 5:10 PM [facility] CO2 30 21 - 32 mmol/L LAB CHEMISTRY METHOD 01/20/2025 5:10 PM [facility] Anion Gap 5 3 - 11 LAB CHEMISTRY METHOD 01/20/2025 5:10 PM [facility] Glucose 93 70 - 100 mg/dL LAB CHEMISTRY METHOD 01/20/2025 5:10 PM [facility] BUN 8 5 - 25 mg/dL LAB CHEMISTRY METHOD 01/20/2025 5:10 PM [facility] Creatinine 0.82 0.50 - 1.10 mg/dL LAB CHEMISTRY METHOD 01/20/2025 5:10 PM [facility] eGFR 89 >=60 mL/min/1. 73m2 LAB CHEMISTRY METHOD 01/20/2025 5:10 PM [facility] Comment:Calculation based on the Chronic Kidney Disease Epidemiology Collaboration (CKD-EPI) equation refit without adjustment for race. BUN/Creatinine Ratio 9.8 LAB CHEMISTRY METHOD 01/20/2025 5:10 PM [facility] Calcium 8.4(L) 8.5 - 10.5 mg/dL LAB CHEMISTRY METHOD 01/20/2025 5:10 PM [facility] Blood Venous blood specimen / Unknown Venipuncture / Unknown 01/20/2025 11:52 AM EDT 01/20/2025 11:52 AM EDT us Alicia Smith DO LAB BLOOD ORDERABLES Final Res ult [facility] [address] [place] [address], [place] [phone] * Trichomonas vaginalis antigen (01/09/2025 2:18 PM EDT) Trichomonas vaginalis Negative Negative 01/09/2025 7:16 PM EDT [facility] Swab Vaginal structure / Unknown Non-blood Collection / Unknown 01/09/2025 2:18 PM EDT 01/09/2025 2:18 PM EDT Brandy WILK[facility] LAB MICROBIOLOGY - GENERAL ORDE RABLES Final Result [facility] [address] [place] [address], [place] [phone] * Chlamydia trachomatis and Neisseria gonorrhoeae molecular study (01/09/2025 2:18 PM EDT) Pathologist [facility] Neisseria gonorrhoeae PCR Negative Negative LAB MOLECULAR DIAGNOSTICS METHOD 01/10/2025 9:04 AM EDT [facility] Chlamydia trachomatis PCR Negative Negative LAB MOLECULAR DIAGNOSTICS METHOD 01/10/2025 9:04 AM EDT [facility] Swab Cervix uteri structure / Unknown Non-blood Collection / Unknown 01/09/2025 2:18 PM EDT 01/09/2025 2:18 PM EDT us Brandy Callejas CNM LAB MICROBIOLOGY - GENERAL ORDE RABLES Final Result [facility] [address] [place] [address], [place] [phone] * (ABNORMAL) POC Wet Mount (01/09/2025 1:55 PM EDT) Trichomonas, Wet Prep POC Absent Absent Yeast, Wet Prep POC Negative Not Applicable, Negative Clue Cells, Wet Prep POC Positive(A) Not Applicable, Negative Whiff Test, Wet Prep POC Positive(A) Not Done, Negative PH FL Type POC 4.0 Vaginal Fluid Vaginal structure / Unknown 01/09/2025 1:55 PM EDT us Brandy Callejas CN POINT OF CARE TEST ENTER/EDIT O RDERABLES Final Result * US Head Neck Soft Tissue (01/04/2025 5:02 PM EDT) Anatomical Region Laterality Modality Head and Neck Ultrasound 01/04/2025 5:16 PM EDT Impressions 01/04/2025 5:20 PM EDT Multiple thyroid nodules as described above. -------- FINAL REPORT -------- Dictated By: Rosie Diaz Dictated Date: 01/04/2025 17:16 ET Assigned Physician: Rosie Diaz Reviewed and Electronically Signed By: Rosie Diaz Signed Date: 01/04/2025 17:20 ET Workstation ID: [id number] Transcribed By: Self Edit Transcribed Date: 01/04/2025 17:16 ET Narrative 01/04/2025 5:20 PM EDT Exam: Thyroid ultrasound. HISTORY: Thyroid nodule COMPARISON: Ultrasound thyroid from 08/13/2021, ultrasound soft tissue neck from 04/09/2021 Technique: Grayscale and Doppler images of the thyroid gland were obtained. FINDINGS: The thyroid gland is borderline enlarged in size. The right lobe measures 6.0 x 2.7 x 2.9 cm. The left lobe measures 5.9 x 1.8 x 2.7 cm. The thyroid isthmus is prominent in size and measures 0.5 cm. The thyroid parenchyma is heterogenous Right Lobe: Midpole-isoechoic solid heterogeneous nodule with multiple cystic spaces measuring 3.2 x 2.1 x 2.9 cm decreased in size from prior exam Lower pole-1.2 x 1.0 x 1.2 cm isoechoic heterogeneous solid and cystic nodule decreased in size from prior exam Lower nhni-lqfr-sffhyap, rounded, isoechoic solid nodule with a hypoechoic rim measuring 1.2 x 1.0 x 1.1 cm, grossly stable from prior exam minimal increased vascularity. Left Lobe: Midpole-hypoechoic solid heterogeneous nodule with a few cystic spaces measuring 1.1 x 0.8 x 0.9 cm Midpole-1.0 x 0.9 x 0.7 cm hypoechoic solid heterogeneous nodule Procedure Note Rosie Daiz MD - 01/04/2025 Exam: Thyroid ultrasound. HISTORY: Thyroid nodule COMPARISON: Ultrasound thyroid from 08/13/2021, ultrasound soft tissue neckfrom 04/09/2021 Technique: Grayscale and Doppler images of the thyroid gland wereobtained. FINDINGS: The thyroid gland is borderline enlarged in size. The right lobe measures6.0 x 2.7 x 2.9 cm. The left lobe measures 5.9 x 1.8 x 2.7 cm. The thyroidisthmus is prominent in size and measures 0.5 cm. The thyroid parenchymais heterogenous Right Lobe: Midpole-isoechoic solid heterogeneous nodule with multiple cystic spacesmeasuring 3.2 x 2.1 x 2.9 cm decreased in size from prior exam Lower pole-1.2 x 1.0 x 1.2 cm isoechoic heterogeneous solid and cysticnodule decreased in size from prior exam Lower slxe-airu-udpqkhd, rounded, isoechoic solid nodule with a hypoechoicrim measuring 1.2 x 1.0 x 1.1 cm, grossly stable from prior exam minimalincreased vascularity. Left Lobe: Midpole-hypoechoic solid heterogeneous nodule with a few cystic spacesmeasuring 1.1 x 0.8 x 0.9 cm Midpole-1.0 x 0.9 x 0.7 cm hypoechoic solid heterogeneous nodule IMPRESSION: Multiple thyroid nodules as described above. -------- FINAL REPORT -------- Dictated By: Rosie Diaz Dictated Date: 01/04/2025 17:16 ET Assigned Physician: Rosie Diaz Reviewed and Electronically Signed By: Rosie Diaz Signed Date: 01/04/2025 17:20 ET Workstation ID: [id number] Transcribed By: Self Edit Transcribed Date: 01/04/2025 17:16 ET us Alexandra KIRK IMG US PROCEDURES Final Res ult * POC glucose manually resulted (12/27/2024 3:15 PM EDT) Glucose POC 110 mg/dL Blood Capillary blood specimen / Unknown 12/27/2024 3:15 PM EDT us Alexandra KIRK POINT OF CARE TEST ENTER/ED IT ORDERABLES Final Result * External Diabetic Retina Eye Exam Report (11/15/2024) Anatomical Region Laterality Modality Ultrasound us Provider [facility] US PROCEDURES Final Result * HIV Screening (01/29/2024) HIV Screening Abstracted us Historical Provider HEALTH MAINTENANCE Final Result * Hepatitis C Screening (01/29/2024) Hepatitis C Screening Abstracted Historical Provider HEALTH MAINTENANCE Final Result * [facility] SCREENING DIGITAL (07/23/2023 8:57 AM EDT) Anatomical Region Laterality Modality Mammography 07/22/2023 3:23 PM EDT Narrative 07/23/2023 8:[address] [facility] Diagnostic Imaging Department [address] [place] [address] Patient: ALVINA DALE D.O.B./Age/Sex: 1980 - 43 - F Unit#: [id number] Location/Status: SPDIMAM/REG CLI Mnemonic/Ordering Site: [facility] Ordering Physician: MARTIN BOWLES MD [facility] Screening Digital - 07/22/23 - 1556 Report Status:Signed EXAM: [facility] Screening Digital EXAM DATE AND TIME: 07/22/2023 3:57 PM HISTORY: Annual screening COMPARISON: Multiple exams dating back to 2018 TECHNIQUE: Bilateral digital breast tomosynthesis was performed in the CC and MLO projections. Computer aided detection with WEbook 3D 3.1 was employed. TISSUE DENSITY: b. There are scattered areas of fibroglandular density. FINDINGS: No suspicious masses, grouped microcalcifications, or areas of architectural distortion are seen. The skin and vascularity are unremarkable. IMPRESSION: Stable mammographic appearance of the breasts. No evidence of malignancy is seen. A negative mammogram in the presence of a clinically suspicious palpable abnormality does not preclude the possibility of malignancy or alter the indications for biopsy. BI-RADS: Category 1: Negative RECOMMENDATION(S): 1: Routine screening mammogram BILATERAL in 1 year. 3341F, 7025F Dictating Physician: CLARK VIZCARRA MD Electronically Signed by: CLARK VIZCARRA MD Dic Date/Time: 07/23/23 0850 Sign date/Time: 07/23/23 0857 Procedure Note Clark Vizcarra MD - 12/07/2023 [facility] Diagnostic Imaging Department [address] [place] [address] [id number] Patient: ALVINA DALE/Age/Sex: 1980 - 43 - F Unit#: [id number] Location/Status: SPDIMAM/REG CLI Mnemonic/Ordering Site: [facility] Ordering Physician: MARTIN BOWLES MD [facility] Screening Digital - 07/22/23 - 1556 Report Status:Signed EXAM: [facility] Screening Digital EXAM DATE AND TIME: 07/22/2023 3:57 PM HISTORY: Annual screening COMPARISON: Multiple exams dating back to 2018 TECHNIQUE: Bilateral digital breast tomosynthesis was performed in the CCand MLO projections. Computer aided detection with WEbook 3D 3.1was employed. TISSUE DENSITY: b. There are scattered areas of fibroglandular density. FINDINGS: No suspicious masses, grouped microcalcifications, or areas ofarchitectural distortion are seen. The skin and vascularity are unremarkable. IMPRESSION: Stable mammographic appearance of the breasts. No evidence of malignancyis seen. A negative mammogram in the presence of a clinically suspicious palpable abnormality does not preclude the possibility of malignancy or alter the indications for biopsy. BI-RADS: Category 1: Negative RECOMMENDATION(S): 1: Routine screening mammogram BILATERAL in 1 year. 3341F, 7025F Dictating Physician: CLARK VIZCARRA MD Electronically Signed by: CLARK VIZCARRA MD Dic Date/Time: 07/23/23 0850 Sign date/Time: 07/23/23 0857 Martin Bowles MD IMG BI PROCEDURES Final Result * Diabetes Foot Exam (03/31/2023) Diabetes: Annual Foot Exam Abstracted Historical Provider HEALTH MAINTENANCE Final Result * Pap Smear (01/31/2021) Pap smear No Interpretation , Abstracted Historical Provider HEALTH MAINTENANCE Final Result from Last 3 Months or Most Recently Relevant to Health Maintenance Insurance [facility] MEDIC[facility] Member Subscriber Plan / Payer (Ef fective 2018-Present) Name:ALVINA DALE Relation to Subscriber:Self Name:Alvina Dale Payer ID:[id number] Group ID:[id number] Type:Not on file Address: [address] [place] [address] MEDICAID - [place] Care Teams Hot Wort Settler Relationship Specialty Start Date End Date Martin Bowles MD [address] [place] [id number] PCP - General Internal Medicine 02/25/24
--- OUTSIDE RECORDS SUMMARY | 2025-02-13 18:07 | XMS_ITS | Encounter Summary ---
Author Organization [facility] Address [address] [place] [address] Care Team Providers Care Program Director Scouting Name Role Phone Trevin Quiñonez MD Primary Care Provider [phone] Encounter Details Date Type Department Care Team (Late st Contact Info) Description 01/20/2025 Results Follow-Up Internal Medicine - [place] [address] [place] [id number] Aga Martinez MA Social History Tobacco Use Types Packs/Day Years [...] for your loved ones. For example, child care leader or elderly care for an older adult? [...] PM EDT [facility]ment [facility] [address] [phone] 03/02/2025 4:20 PM EST Office Visit Endocrinology - [place] [address] [place] [address] Elvi Willett PA [address] [place] [address] documented as of this encounter Visit Diagnoses Not on filedocumented in this encounter Additional Health Concerns Assessment Noted Time PHQ-9 Depression Total Score: 8 01/10/20 25 1:35 PM EDT documented as of this encounter Care Teams Program Director Scouting Relationship Specialty Start Date End Date Trevin Quiñonez MD [address] [place] [phone] PCP - General Internal Medicine 02/25/24 documented as of this encounter
--- OUTSIDE RECORDS SUMMARY | 2025-02-13 18:07 | XMS_ITS | Encounter Summary ---
Author Organization [facility] Address [address] [place] [address] Care Team Providers Care Creative Services Producer Name Role Phone Trevin Quiñonez MD Primary Care Provider [phone] Reason for Visit * Reason Onset Date Comments Results 01/23/2025 Encounter Details Date Type Department Care Team ([facility] st Contact Info) Description 01/23/2025 Results Follow-Up Internal Medicine - [facility] [address] [place] [address] Sayra Badillo MA Social History Tobacco Use Types Packs/Day [...] for your loved ones. For example, child and family therapist or elderly care for an older adult? [...] AM EDT documented as of this encounter Progress Notes * Loida Zhao - 01/25/2025 11:57 AM EDT Pt is returning call.please callback at [phone]. Thx * Sayra Badillo MA - 01/25/2025 10:52 AM EDT Lvm for pt to call back on mobile #. Please transfer call to [phone]. [phone] or A side. * Sayra Badillo MA - 01/25/2025 10:52 AM EDT ----- Message from Debbie Martin NP sent at 01/23/2025 11:37 AM EDT ----- Please call patient Low potassium. low potassium. Should consume potassium rich food: banana, sweet potato, squash or yogurt. Please schedule appointment in a week to follow-up with PCP ----- Message ----- From: Sayra Badillo MA Sent: 01/23/2025 11:02 AM EDT To: ROBIN rPince Dr. is out of office, please manage the result as the ordering provider is on leave. ----- Message ----- From: Lab, Background User Sent: 01/20/2025 5:10 PM EDT To: Alicia Smith DO documented in this encounter Plan of Treatment Upcoming Encounters Date Type Department Care Team (Late st Contact Info) Description 02/15/2025 1:30 PM EDT [facility]ointment [facility] at [address] [phone] 03/02/2025 4:20 PM EST Office Visit Endocrinology - [place] [address] [place] [address] Elvi Willett PA [address] [place] [address] documented as of this encounter Visit Diagnoses Not on filedocumented in this encounter Additional Health Concerns Assessment Noted Time PHQ-9 Depression Total Score: 8 01/10/20 25 1:35 PM EDT documented as of this encounter Care Teams Creative Services Producer Relationship Specialty Start Date End Date Trevin Quiñonez MD [address] [place] [phone] PCP - General Internal Medicine 02/25/24 documented as of this encounter
--- OUTSIDE RECORDS SUMMARY | 2025-02-13 18:07 | XMS_ITS | Clinical Summary ---
Author Organization [facility] Address [address] [place] [address] Care Team Providers Care Apparel Stock Checker Name Role Phone Trevin Quiñonez Primary Care Provider [phone] Allergies No known active allergies Medications albuterol (PROAIR HFA,VENTOLIN HFA) 90 mcg inhaler Inhale 2 puffs by mouth every 6 hours as needed. Active amLODIPine (NORVASC) 10 mg tablet Take 10 mg by mouth daily. 4 Active ARIPiprazole (ABILIFY) 2 mg tablet Active atorvastatin (LIPITOR) 20 mg tablet SMARTSI Tablet(s) By Mouth Daily 5 Active buPROPion XL (WELLBUTRIN XL) 150 mg tablet SMARTSI Tablet(s) By Mouth Daily 5 Active buPROPion XL (WELLBUTRIN XL) 300 mg tablet SMARTSI Tablet(s) By Mouth Daily 5 Active carvediloL (COREG) 6.25 mg tablet Take 1 tablet by mouth 2 times a day with meals. [address] (DEPAKOTE) 250 mg EC tablet 250 mg once a day. Active doxepin 10 mg capsule SMARTSI Capsule(s) By Mouth Every Night 5 Active doxycycline monohydrate (ADOXA) 100 mg tablet 100 mg once a day. 5 Active meclizine (ANTIVERT) 25 mg tablet Take 1 Tablet by mouth 3 times daily as needed (dizziness). 4 Active metFORMIN (GLUCOPHAGE) 500 mg tablet Take 500 mg by mouth 2 times a day with meals. 4 Active ondansetron (ZOFRAN) 4 mg tablet Take 1-2 Tablets by mouth every 8 hours as needed for Nausea. 4 Active polyethylene glycol (GoLYTELY) solution Take 4L by mouth once for one dose. May substitue any PEG. Starting at 6PM the night before your procedure drink 1 8oz glasses at your own pace until you complete half of the gallon. Finish 2nd half of the gallon 5 hours before your procedure. 5 Active Cosentyx UnoReady Pen 300 mg/2 mL pen injector 5 Active pregabalin (LYRICA) 75 mg capsule SMARTSI Capsule(s) By Mouth Twice Daily 4 Active semaglutide (OZEMPIC) 0.25 mg or 0.5 mg (2 mg/3 mL) Use 0.5mg once weekly 5 Active sertraline (ZOLOFT) 100 mg tablet SMARTSI Tablet(s) By Mouth Daily 5 Active spironolactone (ALDACTONE) 25 mg tablet Take 25 mg by mouth once a day. 4 Active SUMAtriptan (IMITREX) 50 mg tablet TAKE 1 TABLET NEEDED FOR HEADACHE MAY REPEAT DOSE IN 2 HOURS IF NEEDED 5 Active traZODone (DESYREL) 100 mg tablet Take 200 mg by mouth nightly. Active valACYclovir (VALTREX) 1 gram tablet Take 1,000 mg by mouth daily. 4 Active diazePAM (VALIUM) 2 mg tablet Take 1 tablet (2 mg total) by mouth every 8 hours as needed for muscle spasms for up to 7 days. 21 tablet 10/28/2024 3:49 PM EDT 5 Active docusate sodium (COLACE) 100 mg capsule Take 1 capsule (100 mg total) by mouth 2 times a day. 60 capsule 10/28/2024 3:49 PM EDT 5 Active famotidine (PEPCID) 20 mg tablet Take 1 tablet (20 mg total) by mouth once a day for 10 days. 10 tablet 10/28/2024 3:49 PM EDT 5 Active senna (SENOKOT) 8.6 mg tablet Take 1 tablet (8.6 mg total) by mouth 2 times a day. 60 tablet 10/28/2024 3:49 PM EDT 5 Active Active Problems Problem Noted Date Diagnosed Date Low back pain radiating to both legs 10/27/2024 Spondylolisthesis, lumbar region 10/27/2024 Encounters Date Type Department Care Team Description 12/07/2024 11:40 AM EDT Follow-Up [facility] [address] [place] [phone] Kwame Perez MD S/P lumbar fusion (Primary Dx) 12/07/2024 SmartBIMhart Message [facility] [address] [place] [phone] Kwame Perez MD Question 11/18/2024 SmartBIMhart Message [facility] [address] [place] [phone] Brooke Rangel NP Quick question 11/17/2024 2:00 PM EDT Follow-Up [facility] [address] [place] [phone] Brooke Rangel NP Wound dehiscence (Primary Dx) from Last 3 Months Family History Medical History Relation Name Comments Heart disease Father Hyperlipidemia Father Hypertension Father Diabetes Mother Heart disease Mother Hyperlipidemia Mother Hypertension Mother Cancer Sister Pancreatic cancer Sister Relation Name Status Comments Father Alive Mother Alive Sister Alive Social History Tobacco Use Types Packs/Day Years Used Date Smoking Tobacco: Former Cigarettes Smokeless Tobacco: Never Tobacco Cessation:Counseling Given: Not Answered Alcohol Use Standard Drinks/Week Comments Not Currently 0 (1 standard drink = 0.6 oz pur e alcohol) [facility] Utilities Answer Date Recorded In the past 12 months has e [employer], gas, oil, or water company threatened to shut off services in your home? No 10/30/2024 Hunger Vital Sign Answer Date Recorded Within the past 12 months, y ou worried that your food would run out before you got the money to buy more. Often true 10/31/19 25 Within the past 12 months, t he food you bought just didn't last and you didn't have money to get more. Often true 10/30/2024 Transportation Answer Date Recorded In the past 12 months, has l ack of reliable transportation kept you from medical appointments, meetings, work or from getting things needed for daily living? No 10/30/2024 Housing Answer Date Recorded Housing Risk Low 1 10/30/2024 Housing Risk Medium 1 10/30/2024 Housing Risk High Not on file 10/30/2024 What is your living situation today? [facility] 10/30/2024 Comments No Sex and Gender Information Value Date Recorded Sex Assigned at Female 03/24/2024 5:40 PM EST Legal Sex Female 11:51 AM EST Gender Identity Female 03/24/2024 5:40 PM EST Sexual Orientation Straight 03/24/2024 5: 40 PM EST Last Filed Vital Signs Vital Sign Reading Time Taken Comments Blood Pressure 112/63 12/07/2024 11:57 AM EDT Pulse 113 12/07/2024 11:57 AM EDT Temperature 37 C (98.6 F) 11/17/2024 1:57 PM EDT Respiratory Rate 18 10/28/2024 12:00 PM EDT Oxygen Saturation 98% 12/07/2024 11:57 AM EDT Inhaled Oxygen Concentration - - Weight 153.8 kg (339 lb) 10/27/2024 10:26 AM EDT Height 188 cm (6' 2 ) 10/27/2024 10:26 AM EDT Body Mass Index 43.53 10/27/2024 10:26 AM EDT Plan of Treatment Health Maintenance Due Date Last Done Comments Cologuard 1978 Colonoscopy 1978 Hepatitis C Screening 1978 Sigmoidoscopy 1978 Hepatitis B Vaccines (1 of 3 - 19+ 3-dose series) 1997 Pneumococcal Vaccine: Pediat octaviano (0-5 Years) and At-Risk Patients (6-50 Years) (2 of 2 - PCV) 11/07/2014 11/07/2013 Mammogram 2018 Alcohol/Substance Use Screening 04/20/2024 Depression Screening and Follow-Up 04/20/2024 COVID-19 Vaccine (4 - 2024-2 6 season) 2024 03/18/2021, 08/05/2020, 07/14/2020 Influenza Vaccine (#1) 2024 , 01/02/2022, 01/10/2021, Additional history exists Colon Cancer Screening 01/28/2025 FOBT / Fit Test 01/28/2025 01/29/2024 [employer] Drivers of Health Yary ual Screening 10/30/2025 10/30/2024 Diabetes Screening 10/29/2027 10/28/2024, 0 10/28/2024, 10/28/2024, Additional history exists DTaP,Tdap,and Td Vaccines (3 - Td or Tdap) 02/02/2034 02/03/2024, 11/07/2013 RSV Vaccine (60+ years old a nd patients) (1 - 1-dose 75+ series) 2053 HIV Screening Completed 01/29/2024 Medical Devices Implanted Type Area Supervisor [employer] Device Identifier Shelf Expiration Date Model / Serial / Lot Akash Spinal Capped Cocr [id number] Cd Horizon Solera - [id number] Implanted:Qty : 2 on 10/27/2024 by Kwame Perez MD at [facility] Implant Spine Lumbar Medtronic [id number] / / Kit Bone Graft Medium Infuse - [id number] Implanted:Qty : 1 on 10/27/2024 by Kwame Perez MD at [facility] Implant Spine Lumbar Medtronic 10/18/2025 [id number] / / [id number] Screw Spinal Non-Sterile 7.5mm X 50mm Voyager Solera Horizon Cd - [id number] Implanted:Qty : 4 on 10/27/2024 by Kwame Perez MD at [facility] Screw Spine Lumbar Medtronic [id number] / / Screw Spinal Non Sterile [id number] Voyager - [id number] Implanted:Qty : 2 on 10/27/2024 by Kwame Perez MD at [facility] Screw Spine Lumbar Medtronic [id number] / / Screw Set 5.5x6.0 Voyager - [id number] Implanted:Qty : 6 on 10/27/2024 by Kwame Perez MD at [facility] Screw Spine Lumbar Medtronic [id number] / / Bone Graft Magnifuse 1cm X 5cm - [id number] - [id number] Implanted:Qty : 1 on 10/27/2024 by Kwame Perez MD at [facility] Tissue Spine Lumbar Medtronic 01/13/2026 [id number] / [id number] / Procedures * Due to [place] shoutr law, this organization might not be sharing negative HIV tests. Procedure Name Priority Date/Time Associated Diagnosis Comments XR LUMBAR SPINE 2 OR 3 VIEWS Routine 12/07/2024 12:19 PM EDT S/P lumbar fusion BASIC METABOLIC PANEL Routine 10/28/2024 4:09 AM EDT from Last 3 Months or Most Recently Relevant to Health Maintenance Results * Due to [place] shoutr law, this organization might not be sharing negative HIV tests. * X-ray lumbar spine 2 or 3 views (12/07/2024 12:19 PM EDT) Anatomical Region Laterality Modality Spine, L-spine Computed Radiogr aphy 12/07/2024 8:03 PM EDT Impressions 12/07/2024 8:04 PM EDT FINDINGS/IMPRESSION: The lateral projection is suboptimal due to positioning of the patient's arm. Consider repeat radiographs when patient can tolerate for more optimal assessment. Prior posterior instrumented spinal fusion of L4 to S1 with paired posterior rods and transpedicular screws, without radiographic evidence of hardware complications. Similar multilevel mild disc degeneration and facet arthropathy. Mild degenerative changes of the sacroiliac joints. The sacrum is obscured by overlying soft tissue structures. If this radiology report contains a blank impression section, it is an incomplete radiology report. Please contact the interpreting radiologist or applicable radiology division as soon as possible to obtain the completed interpretation. Workstation ID: [id number] Narrative 12/07/2024 8:04 PM EDT COMPARISON: 10/28/2024 Resulting Agency Comment [id number] Procedure Note Javed Kaba MD - 12/07/2024 COMPARISON: 10/28/2024 IMPRESSION: FINDINGS/IMPRESSION: The lateral projection is suboptimal due to positioning of the patient'sarm. Consider repeat radiographs when patient can tolerate for moreoptimal assessment. Prior posterior instrumented spinal fusion of L4 to S1 with pairedposterior rods and transpedicular screws, without radiographic evidence ofhardware complications. Similar multilevel mild disc degeneration andfacet arthropathy. Mild degenerative changes of the sacroiliac joints.The sacrum is obscured by overlying soft tissue structures. If this radiology report contains a blank impression section, it is anincomplete radiology report. Please contact the interpreting radiologistor applicable radiology division as soon as possible to obtain thecompleted interpretation. Workstation ID: [id number] us Kwame Perez MD IMG XR PROCEDURES Final Res ult * (ABNORMAL) Basic Metabolic Panel (10/28/2024 4:09 AM EDT) NA 140 135 - 145 mmol/L 10/28/2024 5:04 AM EDT [facility] K 3.9 3.5 - 5.3 mmol/L 10/28/2024 5:04 AM EDT [facility] Cl 104 98 - 107 mmol/L 10/28/2024 5:04 AM EDT [facility] CO2 26 22 - 32 mmol/L 10/28/2024 5:04 AM EDT [facility] BUN 10 7 - 23 mg/dL 10/28/2024 5:04 AM EDT [facility] Creatinine 0.73 0.50 - 1.20 mg/dL 10/28/2024 5:04 AM EDT [facility] Glucose 195(H) 65 - 99 mg/dL 10/28/2024 5:04 AM EDT [facility] Calcium 8.2(L) 8.6 - 10.5 mg/dL 10/28/2024 5:04 AM EDT [facility] Anion Gap 10 5 - 15 10/28/2024 5:04 AM EDT [facility] eGFR >90 >=60 mL/min/1. 73m2 10/28/2024 5:04 AM EDT [facility] Comment:The estimated glomer ular filtration rate (eGFR) is calculated using a new formula developed by the NKF-ASN task force to eliminate race-based correction factors. The new formula uses serum/plasma creatinine, age, and gender to determine eGFR. A value below 60mls/min might indicate kidney disease and will be flagged. For additional information, see Leora et al, Am J Kidney Dis. 2021;79(2):268- 288, A Unifying Approach for GFR estimation: Recommendations of the NKF-ASN Task Force on Reassessing the Inclusion of Race in Diagnosing Kidney Disease . Blood Structure of peripheral vein / Unknown Venipuncture / Unknown 10/28/2024 4:09 AM EDT 10/28/2024 4:35 AM EDT us Kwame Perez MD LAB BLOOD ORDERABLES Final Result [facility] [address] [place] [address] from Last 3 Months or Most Recently Relevant to Health Maintenance Insurance [facility] Advance Directives Documents on File Type Date Recorded Patient Land Surveying Manager Expl christelle Health Care Proxy 10/24/2024 9:36 AM * Full Code (Latest Code Status on File) Date Activated Date Inactivated Comments 10/27/2024 3:38 PM 10/28/2024 6:43 PM * Full Code Date Activated Date Inactivated Comments 10/27/2024 10:34 AM 10/27/2024 3:38 PM Care Teams Apparel Stock Checker Relationship Specialty Start Date End Date Trevin Quiñonez [address] [place] [phone] PCP - General Internal Medicine 03/11/24
== END 2025-02-13 15:07 | disposition home or self-care (01) ==
LOC: HO.HSM 14:33
PROVIDERS: PCP Internal Medicine; Visit Provider Psychiatry & Neurology Neurology
DX: G43.009 Migraine without aura, not intractable, without status migrainosus (principal)
CPT/HCPCS: 99214

== ENCOUNTER → 2025-02-13 14:33 | Outpatient (BNVA) | payer OTHER, SELFPAY | PROVIDERS: PCP Internal Medicine; Visit Provider Psychiatry & Neurology Neurology | DX: G43.009 Migraine without aura, not intractable, without status migrainosus (principal) | CPT/HCPCS: 99212 ==